=== PATIENT | male | born 1970 | race Caucasian/White ===

== ENCOUNTER 2022-03-25 16:51 | Emergency (ER) | payer OTHER, SELFPAY ==
[2022-03-25] VITALS (11 sets, daily range): BP systolic 153–203; BP diastolic 99–107; PULSE 64–86; RESP 15–19; TEMP 36.7; O2SAT 93–97; BMI 30.4
--- NOTE | 2022-03-25 17:17 | DI.US.S_ITS ---
PROCEDURE: US SCROTUM INDICATIONS: swelling TECHNIQUE: Real-time scanning was performed of the scrotum and testicles, with image documentation. Color and pulse Doppler interrogation was performed of both testicles. COMPARISON: None. FINDINGS: Right: Testicle is normal in size at 5.1 x 2.4 x 3.4 cm, and homogenous in echotexture. Epididymis is normal in overall size and morphology. There are small epididymal cysts measuring up to 5 mm. No hydrocele or varicoceles. Overlying scrotal skin is normal in thickness. Left: Testicle is normal in size at 4.8 x 2.4 x 2.8 cm, and homogeneous in echotexture. Epididymis is normal in overall size and morphology. A 3 mm epididymal cyst is seen in epididymal head. No hydrocele or varicoceles. Overlying scrotal skin is normal in thickness. Doppler: Color and pulse Doppler demonstrate arterial flow in both testicles. Slightly increased vascularity in the right epididymal body and tail, as well as the right testes. IMPRESSION: 1. No findings to suggest testicular torsion. No testicular masses. 2. Mildly increased vascularity in the right epididymal body and tail, as well as subtle increased activity in the right testicle compared to the left testicle, suggesting epididymitis/orchitis. 3. Bilateral small epididymal cysts. Dictated by: Brenna Lew M.D. on 03/25/2022 at 18:01 Approved by: Brenna Lew M.D. on 03/25/2022 at 18:07
--- NOTE | 2022-03-25 21:22 | ED_ITS ---
HPI - Male Genitourinary General Chief complaint: Urogenital-Male Stated complaint: Testicle Pain/Swelling Time Seen by Provider: 03/25/22 17:17 Source: patient Mode of arrival: Ambulatory Limitations: no limitations History of Present Illness HPI Narrative: This is a 51-year-old male comes in with complaint of right testicular pain and swelling that started on Tuesday or Tuesday. Patient has had pain there is a s mall area of swelling or change. Patient states he has a varicocele on the left which is occasionally painful but this is different. He has not had any fevers. No abdominal, back or flank pain, no dysuria urgency or frequency. No penile discharge. Patient states he has not been sexually active and has no suspicion for STDs at this time. He is reportedly a medication for hypertension and seas onal allergies. He has not had similar symptoms in the past. He denies any allergies to medications. Related Data Home Medications Medication Instructions Recorded Confirmed hydrochlorothiazide 12.5 mg capsule 12.5 mg PO QDAY #0 03/19/13 lisinopril 20 mg tablet (Zestril) 20 mg PO QDAY #0 03/19/13 loratadine 10 mg tablet 10 mg PO QDAY #0 03/19/13 montelukast 10 mg tablet 10 mg PO QDAY #0 03/19/13 (Singulair) Previous Rx's Medication Instructions Recorded levofloxacin 500 mg tablet 500 mg PO DAILY 10 Days #10 tab 03/25/22 Allergies Allergy/AdvReac Type Severity Reaction Status Date / Time No Known Drug Allergies Allergy Verified 03/25/22 16:59 Review of Systems Review of Systems ROS Unobtainable: All systems reviewed & are unremarkable except as noted in HPI and below Patient History Social History Smoking Status: Unknown if ever smoked Smoking Status: Unknown if ever smoked alcohol intake frequency: 3 or more drinks per day Substance Use Type: does not use Exam Narrative Exam Narrative: GENERAL: Alert and oriented x three, male in mild distress. HEENT: Head normocephalic, atraumatic, EOMI, pupils reactive, face symmetric, moist mucous membranes NECK: Supple, full range of motion CARDIOVASCULAR: Regular rate and rhythm without murmurs, rubs or gallops. RESPIRATORY: Breath sounds equal bilaterally, no wheezes rales or rhonchi. ABDOMEN: Soft, nontender. Normoactive bowel sounds all 4 quadrants. No guarding or rebound, rigidity, no mass : No CVA tenderness. Male: Patient has swelling of the right testicle, mildly tender, no penile discharge or lesions, cremasteric reflex intact. 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 EXTREMITIES: Normal range of motion, no clubbing or edema. Neurovascularly intact NEUROLOGICAL: Cranial nerves II through XII grossly intact. Moving all extremities SKIN: Warm, dry, no petechiae, no rashes or lesions. Initial Vital Signs Initial Vital Signs: Vital Signs Temperature 98.1 F 03/25/22 16:59 Pulse Rate 64 03/25/22 16:59 Respiratory Rate 15 03/25/22 16:59 Blood Pressure 203/99 H 03/25/22 16:59 Pulse Oximetry 97 03/25/22 16:59 Course Orders Ordered: Discontinued Medications Levofloxacin (Levofloxacin 250 Mg Tablet) 500 mg PO NOW ONE Stop: 03/25/22 21:47 Last Admin: 03/25/22 21:56 Dose: 500 mg Documented by: FELICIA Vital Signs Vital signs: Vital Signs - 8 hr 03/25/22 16:59 03/25/22 20:25 03/25/22 20:54 Temperature 98.1 F Pulse Rate 64 86 80 Respiratory Rate 15 19 19 Blood Pressure 203/99 H 203/103 H 153/103 H Pulse Oximetry 97 97 94 MDM - Male Genitourinary Lab Data Labs: Urine Dip Bedside Urine Glucose Negative Bedside Urine Bilirubin - Negative Bedside Urine Ketone - Negative Urine Specific [place] 1.010 Bedside Urine Occult Blood - Negative Bedside Urine pH 6.0 Bedside Urine Protein - Negative Bedside Urine Urobilinogen - Negative Bedside Urine Nitrite - Negative Bedside Urine Leukocytes - Negative Esterase Imaging Data testicular US: Radiologist's Impression: Jarred Mayers??51??M??1970 ? Allergy/Adv: No Known Drug Allergies (More??) Close Scrotum Ultrasound (Signed) Bill Lew - 03/25/22 Launch?[address] [address] Ultrasound Report Signed Patient: Jarred Mayers MR#: [id number] : 1970 Acct:[id number] Age/Sex: 51 / M Date of Service: 03/25/22 Loc: ED Accession Number: [id number] ?? Procedure: US scrotum Ordering Provider: Jill Antoine D.O. PROCEDURE:? US SCROTUM ? INDICATIONS:? swelling ? TECHNIQUE:? Real-time scanning was performed of the scrotum and testicles, with image documentation.? Color and pulse Doppler interrogation was performed of both testicles.? ? COMPARISON:? None. ? FINDINGS:? ? Right:? Testicle is normal in size at 5.1 x 2.4 x 3.4 cm, and homogenous in echotexture.? Epididymis is normal in overall size and morphology.? There are small epididymal cysts measuring up to 5 mm.? No hydrocele or varicoceles.? Overlying scrotal skin is normal in thickness.? ? Left:? Testicle is normal in size at 4.8 x 2.4 x 2.8 cm, and homogeneous in echotexture.? Epididymis is normal in overall size and morphology.? A 3 mm epididymal cyst is seen in epididymal head.? No hydrocele or varicoceles.? Overlying scrotal skin is normal in thickness.? ? Doppler:? Color and pulse Doppler demonstrate arterial flow in both testicles.? Slightly increased vascularity in the right epididymal body and tail, as well as the right testes. ? IMPRESSION:? ? 1. No findings to suggest testicular torsion.? No testicular masses. ? 2. Mildly increased vascularity in the right epididymal body and tail, as well as subtle increased activity in the right testicle compared to the left testicle, suggesting epididymitis/orchitis. ? 3. Bilateral small epididymal cysts. ? ? Dictated by: Brenna Lew M.D. on 03/25/2022 at 18:01 ? ? Approved by: Brenna Lew M.D. on 03/25/2022 at 18:07 MDM Narrative Medical decision making narrative: 51-year-old male with right testicular swelling with signs of epididymitis on exam and ultrasound. Patient denies any current risk factors for STDs. Plan for Levaquin p.o., prescription sent patient given 1st dose here in the emergency department and return precautions discussed. Discharge Plan Departure Patient Disposition: Home Clinical Impression: Epididymitis Instructions: Epididymitis Activity Restrictions/Additional Instructions: Follow-up if your symptoms have not completely resolved in the next week. Take antibiotics once daily until completed. Prescription sent to [facility] pharmacy. Please return for fevers, rapidly worsening swelling, pain, difficulty with urination, painful urination, abdominal back or flank pain or other new or concerning symptoms. Prescriptions: New levofloxacin 500 mg tablet 500 mg PO DAILY 10 Days Qty: 10 0RF No Action lisinopril [Zestril] 20 MG tablet 20 mg PO QDAY Qty: 0 0RF hydrochlorothiazide 12.5 MG capsule 12.5 mg PO QDAY Qty: 0 0RF montelukast [Singulair] 10 MG tablet 10 mg PO QDAY Qty: 0 0RF loratadine 10 MG tablet 10 mg PO QDAY Qty: 0 0RF Referrals: Campbell Ford MD [Primary Care Provider] -
[2022-03-25] MEDS: levoFLOXacin 250 MG TABLET 500 MG PO (21:56)
== END 2022-03-25 21:58 | disposition home or self-care (01) ==
PROVIDERS: Emergency Provider Emergency Medicine; PCP Family Medicine
DX: N45.1 Epididymitis (principal)
CPT/HCPCS: 76870; 81003; 99283

== ENCOUNTER 2023-08-01 10:23 | Day surgery (SDC) | payer OTHER, SELFPAY ==
[2023-07-26 14:29] VITALS: BMI 31.1
[2023-08-01] VITALS (7 sets, daily range): BP systolic 98–144; BP diastolic 63–93; PULSE 68–84; RESP 13–16; TEMP 36.6–37.4; O2SAT 96–98; BMI 31.1
[2023-08-01] MEDS: LACTATED RINGERS 1,000 ML 100 ML IV (11:11)
--- NOTE | 2023-08-01 11:54 | PM.HP.1 ---
History of Present Illness History of Present Illness Date Patient Seen: 08/01/23 Time Patient Seen: 11:54 Chief complaint: Right Hernia Repair - Inguinal Narrative: That comes in for his hernia repair. He feels that he has pain at both groins. [facility] Medical History (Updated 08/01/23 @ 11:55 by Chema Chaudhary MD) History of angina History of cardiac arrhythmia History of obstructive sleep apnea Hypertension Surgical History (Updated 07/26/23 @ 14:33 by Olivia Corona RN) History of back surgery History of umbilical hernia repair Family History Father Hypertension Social History household members: none Smoking Status: Unknown if ever smoked alcohol intake: current Meds Home Medications and Allergies Home Medications Medication Instructions Recorded Confirmed Type chlorthalidone 25 mg tablet 25 mg PO DAILY 06/13/23 08/01/23 History levocetirizine 5 mg tablet (Xyzal) 5 mg PO DAILY 07/26/23 08/01/23 History valsartan 160 mg tablet 160 mg PO DAILY 07/26/23 08/01/23 History Allergies Allergy/AdvReac Type Severity Reaction Status Date / Time amlodipine AdvReac Intermediate Anxiety Verified 08/01/23 11:22 Exam Vital Signs (past 8 hours): - 08/01/23 11:11 Temperature 97.8 F Pulse Rate 80 Respiratory Rate 16 Blood Pressure 144/93 H Pulse Oximetry 96 Oxygen Delivery Method Room Air Oxygen Delivery Method Room Air Narrative Exam Narrative: There are small reducible bilateral inguinal hernias. Assessment & Plan Assessment and plan (1) Bilateral inguinal hernia: Status: Acute Plan We reviewed the risks and benefits of laparoscopic bilateral inguinal hernia repair with mesh and he would like to proceed.
[2023-08-01] MEDS: CEFAZOLIN 2 GM/100 ML PREMIX 100 ML IV (12:45)
--- NOTE | 2023-08-01 13:07 | SUR.OPER ---
Supine on padded OR bed, head on pillow, arms padded and tucked at sides, legs uncrossed, safety belt at thigh, tape over blanket over lower legs .
[2023-08-01] MEDS: BUPIVACAINE 0.5% (PF) 30 ML, EPINEPHrine 0.15 MG INJ (13:23)
--- NOTE | 2023-08-01 14:38 | PM.OP.1 ---
Operative Date/Time/Diagnoses Date of procedure: 08/01/23 Time of procedure: 14:39 Pre-op diagnosis: Bilateral inguinal hernia Post-op diagnosis: same Procedure & Clinicians Procedure: Laparoscopic bilateral inguinal hernia repair with mesh Same procedure as scheduled: Yes Surgeon: Chema Chaudhary Anesthesia Type: General Operative Notes Procedure in detail: Surgeon: Chema Chaudhayr MD The patient was given preoperative antibiotics. The patient was brought to the operating room, placed on the table in the supine position with the arms tucked and general anesthesia was induced. The abdomen was prepped and draped in the usual fashion. A time-out was performed. A 1 cm supraumbilical incision was created and dissection was carried down to the fascia. The fascia was scored transversely with cautery. A Peon clamp was used to silva the peritoneum. The Arnav port was placed and the abdomen was insufflated to 15 mmHg. The camera was inserted, there was no evidence of any injury from the entry. 5 mm ports were placed under direct vision in the mid left and mid right abdomen. The patient was positioned in steep Trendelenburg. We started on the right side. We created a right peritoneal flap. The peritoneum was dissected off the cord structures. A direct defect was seen. A large right Bard mesh was brought in and placed over the defect with the medial edge against Eben's ligament. We then closed the peritoneal flap with a running 3-0 barbed suture. Next we turned our attention to the left side. The peritoneum was dissected off the left cord structures. A large left Bard mesh was brought in and placed over the defect with the medial edge against Eben's ligament. We then closed the peritoneal flap with a running 3-0 barbed suture. We took one last look around the abdomen and saw no other abnormalities. The suture was removed and accounted for. The 5 mm ports were removed under direct vision. The abdomen was desufflated. The Arnav port was removed. Additional local was injected into the fascia and the infraumbilical fascial incision was closed with 2 interrupted 0 Vicryl sutures. The skin incisions were closed with 4 Monocryl, Steri-Strips and Band-Aids. Post-operative Condition: stable Disposition: PACU
[2023-08-01] MEDS: OXYCODONE IR 5 MG TABLET PO (15:30)
== END 2023-08-01 15:48 | disposition home or self-care (01) ==
PROVIDERS: Referring Provider Surgery; Visit Provider Surgery
PROC: 0YQ54ZZ Repair Right Inguinal Region, Percutaneous Endoscopic Approach (ICD-10-PCS; CPT 49650; principal; 2023-08-01 11:30)
DX: K40.20 Bilateral inguinal hernia, without obstruction or gangrene, not specified as recurrent (principal); I10 Essential (primary) hypertension
CPT/HCPCS: 49650; J0171; J0690; J1100; J1885; J2405; J2704; J3010

== ENCOUNTER → 2023-11-25 13:56 | Outpatient (CLI) | payer OTHER, SELFPAY ==
--- NOTE | 2023-11-25 13:58 | DI.MRI.S_ITS ---
PROCEDURE: MR PELVIS WO CON INDICATIONS: POST HERNIA SURGERY TECHNIQUE: Coronal HASTE, sagittal breath-hold T2 FSE; axial T1 FSE with and without fat saturation through the pelvis. Optional long- and short-axis uterine nonbreath-hold T2 FSE through the uterus. Sagittal or axial dynamic VIBE during administration of contrast. Post-contrast axial or coronal VIBE/2-D FLASH with fat saturation from the iliac crests to the symphysis. Optional diffusion weighted imaging and ADC may be performed. COMPARISON: None. FINDINGS: Image quality: Excellent. Reproductive organs: Prostate is mildly enlarged. Normal appearance of the testicles. Urinary system: Bladder wall is normal in thickness. Distal ureters are non distended. Urethra appears normal in morphology. Nodes and vessels: No pelvic or inguinal adenopathy by size criteria. Iliac vessels are normal in size. Bowel and peritoneum: No pathologic free pelvic fluid. Inferior colon and small bowel loops are normal in caliber. Soft tissues: No inguinal hernias. Trace fat within the left inguinal canal, which does not originate from the peritoneum. Bones: Marrow demonstrates normal overall signal. IMPRESSION: Trace fat within the left inguinal canal, which does not originate from the peritoneum. Dictated by: Juan M Perez M.D. on 11/25/2023 at 15:57 Approved by: Juan M Perez M.D. on 11/25/2023 at 15:59
== END ==
LOC: MRI 13:57
PROVIDERS: Referring Provider Family Medicine; Visit Provider Family Medicine
DX: S39.81XA Other specified injuries of abdomen, initial encounter (principal); N40.0 Benign prostatic hyperplasia without lower urinary tract symptoms; Z98.890 Other specified postprocedural states; Z87.19 Personal history of other diseases of the digestive system
CPT/HCPCS: 72195

== ENCOUNTER → 2025-03-25 07:56 | Outpatient (CLI) | payer OTHER, SELFPAY ==
--- NOTE | 2025-03-25 07:58 | DI.NM.S_ITS ---
PROCEDURE: NM EXERCISE TREADMILL NON NUC COMPARISON: None. INDICATIONS: chest pain FINDINGS: Patient exercised per the standard Iván protocol. Total exercise time was 12 minutes and 46 seconds. Test was terminated secondary to it is just too hot. Maximum heart rate attained is 163 bpm which is 99% of maximal predicted heart rate. Maximum blood pressure is 220/[place] [address]. SORAYA -30%. 12.8 METS. No ischemic changes noted. No arrhythmias present. Normal heart rate with hypertensive blood pressure response to exercise. No chest pains voiced. IMPRESSION: 1. Negative exercise treadmill stress test for ischemia. 2. Above average exercise tolerance. 3. Hypertensive response to exercise. Dictated by: Erasmo Wayne M.D. on 03/25/2025 at 17:08 Approved by: Erasmo Wayne M.D. on 03/25/2025 at 17:14
== END ==
LOC: NUCM 07:57
PROVIDERS: Referring Provider Family Medicine; Visit Provider Family Medicine
DX: R07.89 Other chest pain (principal); R03.0 Elevated blood-pressure reading, without diagnosis of hypertension
CPT/HCPCS: 93017

== ENCOUNTER → 2025-08-16 13:41 | Outpatient (CLI) | payer OTHER, SELFPAY ==
--- NOTE | 2025-08-16 13:43 | DI.MRI.S_ITS ---
PROCEDURE: MR LUMBAR SPINE WO CON INDICATIONS: nerve root impingement TECHNIQUE: Noncontrast sagittal T1 spin echo and T2 fast echo, sagittal STIR, and T2 fast spin echo through the lumbar spine. In cases with scoliosis, additional coronal T2 fast spin echo may be performed. COMPARISON: None. FINDINGS: Image quality: Diagnostic. There is right-sided posterior spinal fusion hardware and intervertebral disc spacer at L5-S1. Alignment and Curvature: Trace retrolisthesis of L4 on L5, and grade 1 anterolisthesis of L5 on S1. Bone Marrow: Marrow is of normal overall signal. No acute vertebral body compression fractures. Spinal Cord: Conus medullaris terminates at the L1 level. Visualized cord demonstrates normal signal and size. Paraspinous Soft Tissues: No paravertebral masses. T12-L1: Normal appearance. L1-L2: Mild facet and ligamentum flavum hypertrophy. No spinal canal or neural foraminal stenosis. L2-L3: Moderate facet and ligamentum flavum hypertrophy. No spinal canal or neural foraminal stenosis. L3-L4: Moderate facet and ligamentum flavum hypertrophy. No spinal canal or neural foraminal stenosis. L4-L5: A disc bulge with superimposed central disc protrusion, and moderate to severe facet hypertrophy. Moderate bilateral neural foraminal stenosis. Narrowing of the right subarticular recess with abutment of the traversing nerve root. No spinal canal stenosis. L5-S1: Status post right-sided posterior fixation at L5-S1. Uncovering of the disk secondary to mild anterolisthesis with small superimposed disc bulge. Severe right neural foraminal stenosis and mild left neural foraminal narrowing is present. No spinal canal stenosis. IMPRESSION: Status post right sided posterior fixation at L5-S1, with severe right neural foraminal stenosis at this level. Moderate bilateral neural foraminal stenosis is present at L4-L5 with abutment of the right descending L5 nerve root secondary to right subarticular recess narrowing. No spinal canal stenosis at any level. Dictated by: Beth Burk M.D. on 08/18/2025 at 13:24 Approved by: Beth Burk M.D. on 08/18/2025 at 13:54
== END ==
LOC: MRI 13:42
PROVIDERS: PCP Family Medicine; Referring Provider Family Medicine; Visit Provider Family Medicine
DX: M54.16 Radiculopathy, lumbar region (principal); M48.061 Spinal stenosis, lumbar region without neurogenic claudication; M48.07 Spinal stenosis, lumbosacral region
CPT/HCPCS: 72148